=== PATIENT | female | born 1955 | race Caucasian/White ===

== ENCOUNTER → 2017-05-23 | Outpatient (CLI) | payer OTHER ==
[~2017-05-23] MED LIST: ADRENOID CAPSU1 EACH PO; ADVIL200 M2 PO; ALEVE220 M1 PO; AMOXICILLIN PO; BENADRYL25 M3 PO; FLOXIN20 EA OP; SINUS & ALLERG120 MG PO; VICODIN 5/500 T1 TAB PO
--- NOTE | ~2017-05-23 | CT57 ---
[facility] A Service of [facility] RADIOLOGY TEXT RESULTS PATIENT: MANUEL HOR[facility]ATH [facility] 55 UNIT #: [id number] AGE: [address]: FORD DEUTSCH MD SEX: F ORDER DR: [id number] [facility] [address] [place], [place] [address] [id number] O MR#: [id number] Acc #: [id number] NAME: MANUEL HORVATH : 1955 SEX: F STUDY DATE/TIME: 05/23/2017 10:16 UNIT: [facility] ROOM: STUDY DESCRIPTION: CT Chest Wo Cont Attending Physician: Ford Deutsch M.D. Referring Physician: Ford Deutsch M.D. Ordering Physician: Ford Deutsch M.D. Primary Care Physician: Ford Deutsch M.D. MEDICAL IMAGING REPORT This report is preliminary unless electronic signature is present EXAM Chest CT without contrast. HISTORY Abnormal chest x-ray on 05/15/2017 with an ill-defined opacity in the right upper lobe. Previous history of smoking. TECHNIQUE Axial images were obtained without contrast evaluated at lung and mediastinal windows. This CT exam was performed with one or more of the following radiation dose reduction techniques: automatic exposure control, adjustment of mA and/or kV according to patient size, and iterative reconstruction. FINDINGS Chest images at mediastinal window show no enlarged mediastinal or hilar lymph nodes. There is no evidence of pleural or pericardial fluid. At the inferior aspect of the scan, there is a somewhat lobular mass projecting off of the liver anteriorly in the right lobe. It measures 2.7 cm in diameter. It is nonspecific on this noncontrasted study. Consider further evaluation with abdominal CT scanning with multiphase postcontrast evaluation of the liver. Lung window imaging demonstrates a ground-glass density in the superior segment of the right lower lobe. It has irregular margins and measures 1.7 x 1.5 cm in diameter. Malignancy cannot be excluded. This appears to correspond to the chest x-ray abnormality. Given its ground-glass architecture, PET/CT scanning would have a high incidence of false negatives. I recommend close interval followup with repeat CT scanning in 3 months. The remaining lung zheng are clear. IMPRESSION 1. The chest x-ray abnormality is confirmed on CT. It measures 1.5 x 1.7 cm with ground-glass density and irregular margins suspicious for malignancy. I recommend followup scanning in 3 months and to check STS. [facility] A Service of [facility] & [facility] RADIOLOGY TEXT RESULTS PATIENT: MANUEL HORVATH LOCATION: [facility] : 55 UNIT #: [id number] AGE: [address]: FORD DEUTSCH MD SEX: F ORDER DR: this lesion for any evidence of interval growth. 2. There is also lobular mass projecting off of the anterior aspect of the right hepatic lobe that is nonspecific by imaging criteria since intravenous contrast was not used. This should be further evaluated with a multiphase hepatic CT scan. STAT * RESULT Dictated by... Miguel Sow M.D. THIS IS AN ELECTRONICALLY VERIFIED REPORT Miguel Sow M.D. at 05/24/2017 11:21 AM APRIL/earnest TD: 05/24/2017 10:25 JOB #: [id number] MEDICAL IMAGING REPORT Page 1 of 1 COPY
== END | disposition home or self-care (01) ==
LOC: CCAT 09:50
DX: R93.8 Abnormal findings on diagnostic imaging of other specified body structures (principal); Z87.891 Personal history of nicotine dependence
CPT/HCPCS: 71250